=== PATIENT | male | born 1940 | race Caucasian/White ===

== ENCOUNTER 2017-03-27 18:25 | Emergency (ER) | payer OTHER ==
[~2017-03-27] VITALS: Ht 190.5 cm; Wt 103.0 kg
[~2017-03-27 18:25] MED LIST: ASPI81TA82 PO; CART180C4 PO; CLOB-50 TOP; DIGO0.25 PO; HYDR-3133 PO
[2017-03-27] MEDS ORDERED: SODIUM CHLORIDE 0.9% FLUSH 10 ML FLUSH IV FLUSH PRN (18:45)
[2017-03-27 18:46] VITALS: BP 130/59; PULSE 59; RESP 18; TEMP 98.2; O2SAT 98
--- NOTE | 2017-03-27 19:07 | PD ---
HPI Chief Complaint: Medical Clearance Time Seen by Provider: 18:41 Travel History International Travel<30 days: No Contact w/Intl Traveler<30days: No Traveled to known affect area: No History of Present Illness HPI apparently taxi called ems, upon arrival patient seemed confused and unable to answer questions, had a a wallet with picture id in it and that is how patient was identified initially. patient just keeps singing country classic songs whenever asked questions, he apparently STUMBLED down at front step of [place], HE DOES NOT HAVE ANY SPECIFIC COMPLAINT AND AMBULATED HIMSELF OVER TO [facility]. 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 APPEARS TO MINIMIZE) Allergies-Medications (Allergen,Severity, Reaction): Uncoded Allergies: PEPSI AND COCA COLA (Allergy, Unknown, Itching, 11/08/13) WINE (Adverse Reaction, Unknown, FEET HURT AFTERWARDS., 11/08/13) Reported Meds & Prescriptions Reported Meds & Active Scripts Active Reported Clobetasol Propionate 0.05 % Cre 0.05 % TOP BID APPLY TO AFFECTED AREA(S) Cartia XT 180 mg (DILTIAZEM XT 180 mg (Cartia)) 180 Mg/24 Hr Cap 1 Cap PO DAILY Hydroxyzine Hcl (Hydroxyzine HCl) 25 Mg Tab 25 Mg PO BID Aspir-81 (Aspirin) 81 Mg Tab 81 Mg PO DAILY Digoxin 0.25 mg (Digoxin) 0.25 Mg Tab 0.25 Mg PO DAILY Review of Systems ROS Limitations: Intoxication, Altered Mental Status Except as stated in HPI: all other systems reviewed are Neg Physical Exam Exam Limitations: Intoxication, Altered Mental Status Narrative GENERAL: SKIN: Warm and dry. HEAD: Atraumatic. Normocephalic. EYES: Pupils equal and round. No scleral icterus. No injection or drainage. ENT: No nasal bleeding or discharge. Mucous membranes pink and moist. NECK: Trachea midline. No JVD. CARDIOVASCULAR: Regular rate and rhythm. RESPIRATORY: No accessory muscle use. Clear to auscultation. Breath sounds equal bilaterally. GASTROINTESTINAL: Abdomen soft, non-tender, nondistended. MUSCULOSKELETAL: Extremities without clubbing, cyanosis, or edema. No obvious deformities. NEUROLOGICAL: Awake, confused, gcs 14/15. No obvious cranial nerve deficits. Motor grossly within normal limits. Five out of 5 muscle strength in the arms and legs. Normal speech. PSYCHIATRIC: Appropriate mood and affect; insight and judgment normal. Data Data Last Documented VS Vital Signs Date Time Temp Pulse Resp B/P (MAP) Pulse Ox O2 Delivery O2 Flow Rate FiO2 03/27/17 19:29 20 03/27/17 18:46 98.2 59 98 Room Air Orders Orders Electrocardiogram (03/27/17 18:41) Ammonia (03/27/17 18:41) Complete Blood Count With Diff (03/27/17 18:41) Comprehensive Metabolic Panel (03/27/17 18:41) Prothrombin Time / Inr (Pt) (03/27/17 18:41) Act Partial Throm Time (Ptt) (03/27/17 18:41) Troponin I (03/27/17 18:41) Thyroid Stimulating Hormone (03/27/17 18:41) Urinalysis - C+S If Indicated (03/27/17 18:41) Ct Brain W/O Iv Contrast(Rout) (03/27/17 18:41) Blood Glucose (03/27/17 18:41) Ecg Monitoring (03/27/17 18:41) Iv Access Insert/Monitor (03/27/17 18:41) Oximetry (03/27/17 18:41) Sodium Chloride 0.9% Flush (Ns Flush) (03/27/17 18:45) Drug Screen, Random Urine (03/27/17 18:41) Alcohol (Ethanol) (03/27/17 18:41) Tylenol (Acetaminophen) (03/27/17 18:41) Salicylates (Aspirin) (03/27/17 18:41) Labs Laboratory Tests Test 03/27/17 19:15 White Blood Count 6.1 TH/MM3 Red Blood Count 3.76 MIL/MM3 Hemoglobin 9.9 GM/DL Hematocrit 30.4 % Mean Corpuscular Volume 80.7 FL Mean Corpuscular Hemoglobin 26.2 PG Mean Corpuscular Hemoglobin Concent 32.5 % Red Cell Distribution Width 19.8 % Platelet Count 157 TH/MM3 Mean Platelet Volume 8.4 FL Neutrophils (%) (Auto) 72.9 % Lymphocytes (%) (Auto) 18.9 % Monocytes (%) (Auto) 6.5 % Eosinophils (%) (Auto) 1.1 % Basophils (%) (Auto) 0.6 % Neutrophils # (Auto) 4.4 TH/MM3 Lymphocytes # (Auto) 1.2 TH/MM3 Monocytes # (Auto) 0.4 TH/MM3 Eosinophils # (Auto) 0.1 TH/MM3 Basophils # (Auto) 0.0 TH/MM3 CBC Comment DIFF FINAL Differential Comment Prothrombin Time 10.3 SEC Prothromb Time International Ratio 1.0 RATIO Activated Partial Thromboplast Time 19.8 SEC Blood Urea Nitrogen 24 MG/DL Creatinine 1.36 MG/DL Random Glucose 107 MG/DL Total Protein 7.0 GM/DL Albumin 3.4 GM/DL Calcium Level 8.0 MG/DL Alkaline Phosphatase 88 U/L Aspartate Amino Transf (AST/SGOT) 35 U/L Alanine Aminotransferase (ALT/SGPT) 32 U/L Total Bilirubin 0.2 MG/DL Sodium Level 137 MEQ/L Potassium Level 4.1 MEQ/L Chloride Level 106 MEQ/L Carbon Dioxide Level 18.2 MEQ/L Anion Gap 13 MEQ/L Estimat Glomerular Filtration Rate 51 ML/MIN Ammonia 26 MCMOL/L Troponin I LESS THAN 0.02 NG/ML Thyroid Stimulating Hormone 3rd Gen 2.010 uIU/ML Salicylates Level 3.7 MG/DL Acetaminophen Level LESS THAN 2.0 MCG/ML Ethyl Alcohol Level 244 MG/DL [facility] Medical Decision Making Medical Screen Exam Complete: Yes Emergency Medical Condition: Yes Medical Record Reviewed: Yes Interpretation(s) sinus bradycardia 55, no stemi pattern Differential Diagnosis ich v etoh v electrolyte abnl v dementia Narrative Course KNOWN H/O ANEMIA, VITAL SIGNS STABLE, PATIENT IS NOT [facility] ACTED....CT HEAD NEG FOR ICH..... WILL CALL HIS EMERGENCY CONTACT WHICH PER PATIENT IS BROTHER IN LAW. ONLY FINDING IS PATIENT WAS ETOH INTOX, ETOH 244 Diagnosis Primary Impression: ETOH INTOXICATION Les Lerma MD Mar 27, 2017 19:07
--- NOTE | 2017-03-27 19:11 | RADRPT ---
EXAM DATE/TIME: 03/27/2017 18:53 [facility] COMPARISON: No previous studies available for comparison. INDICATIONS : Trauma; fall. ETOH. RADIATION DOSE: 42.40 CTDIvol (mGy) MEDICAL HISTORY : Gastroesophageal reflux disease. Basal cell carcinoma - nose SURGICAL HISTORY : None. carcinoma excised ENCOUNTER: Initial ACUITY: 1 day PAIN SCALE: 6/10 LOCATION: cranial TECHNIQUE: Multiple contiguous axial images were obtained of the head. Using automated exposure control and adj ustment of the mA and/or kV according to patient size, radiation dose was kept as low as reasonably a chievable to obtain optimal diagnostic quality images. DICOM format image data is available electro nically for review and comparison. FINDINGS: CEREBRUM: The ventricles are normal for age. No evidence of midline shift, mass lesion, hemorrhage or acute in farction. No extra-axial fluid collections are seen. POSTERIOR FOSSA: The cerebellum and brainstem are intact. The 4th ventricle is midline. The cerebellopontine angle i s unremarkable. EXTRACRANIAL: The visualized portion of the orbits is intact. SKULL: The calvaria is intact. No evidence of skull fracture. CONCLUSION: 1. No acute intracranial abnormalities. Nigel Keane MD on March 27, 2017 at 19:08 Board Certified Radiologist. This report was verified electronically.
[2017-03-27 19:28] LABS: AUTOMATED NEUTROPHIL # 4.4 TH/MM3 (1.8-7.7); BASOPHIL % 0.6 % (0.0-2.0); EOSINOPHIL # 0.1 TH/MM3 (0-0.4); EOSINOPHIL % 1.1 % (0.0-4.0); HEMATOCRIT 30.4 % (39.0-51.0); HEMO FLAGS DIFF FINAL; LYMPH % 18.9 % (9.0-44.0); LYMPHOCYTE # 1.2 TH/MM3 (1.0-4.8); MEAN CELL VOLUME 80.7 FL (80.0-100.0); MEAN CORPUSCULAR HEMOGLOBIN 26.2 PG (27.0-34.0); MEAN CORPUSCULAR HGB CONC 32.5 % (32.0-36.0); MONO % 6.5 % (0.0-8.0); NEUT % 72.9 % (16.0-70.0); PLATELET COUNT 157 TH/MM3 (150-450); RED BLOOD COUNT 3.76 MIL/MM3 (4.50-5.90); RED CELL DISTRIBUTION WIDTH 19.8 % (11.6-17.2); WHITE BLOOD COUNT 6.1 TH/MM3 (4.0-11.0)
[2017-03-27 19:29] VITALS: RESP 20
[2017-03-27 19:46] LABS: APTT (PATIENT) 19.8 SEC (24.3-30.1); PROTHROMBIN TIME - PATIENT 10.3 SEC (9.8-11.6)
[2017-03-27 19:47] LABS: ANION GAP 13 MEQ/L (5-15); AST (GOT) 35 U/L (15-37); BICARBONATE 18.2 MEQ/L (21.0-32.0); BLOOD UREA NITROGEN 24 MG/DL (7-18); CHLORIDE 106 MEQ/L (98-107); GLOMERULAR FILTRATION RATE 51 ML/MIN (>89); POTASSIUM 4.1 MEQ/L (3.5-5.1); SODIUM (NA) 137 MEQ/L (136-145)
[2017-03-27 19:58] LABS: ALKALINE PHOSPHATASE 88 U/L (45-117); ALT (GPT) 32 U/L (12-78); TOTAL BILIRUBIN ADULT 0.2 MG/DL (0.2-1.0)
[2017-03-27 19:59] LABS: ACETAMINOPHEN LESS THAN 2.0 MCG/ML (10.0-30.0); ALCOHOL 244 MG/DL (0-5)
--- NOTE | 2017-03-27 21:22 | EKG ---
Date Performed: 03/27/2017 Time Performed: 19:24:28 PTAGE: 76 years EKG: SINUS BRADYCARDIA BORDERLINE ECG PREVIOUS TRACING : 03/07/2014 13.13 No significant change from previous tracing noted. DOCTOR: John Raza Interpretating Date/Time 03/27/2017 21:22:12
== END 2017-03-28 08:54 | disposition home or self-care (01) ==
LOC: NEPD 18:25
DX: F10.129 Alcohol abuse with intoxication, unspecified (principal); R94.31 Abnormal electrocardiogram [ECG] [EKG]; R00.0 Tachycardia, unspecified; Z72.0 Tobacco use; Z79.899 Other long term (current) drug therapy
CPT/HCPCS: 70450; 80053; 80307; 82140; 84443; 84484; 85025; 85610; 85730; 93005